=== PATIENT | male | born 1965 | race Caucasian/White ===

== ENCOUNTER 2016-09-28 06:51 | Day surgery (SDC) | payer BC ==
--- NOTE | ~2016-09-28 | EGD ---
EGD REPORT [facility] [address] [id number] NAME: NALDO GARCIA : 61 STATUS : REG [facility]#: [id number] AGE: 51 ADM/REG DATE : 09/28/16 MR#: [id number] REPORT SERV DATE: 09/28/16 DICTATED BY: RICKY BHAKTA DATE: 09/28/16 REPORT STATUS : Draft [facility]ANS[facility]ED [facility]: [facility] DATE: 09/28/16 Endoscopy Center Patient Name: Naldo Garcia Date of : 1965 Attending MD: RICKY BHAKTA, Procedure Date No Time: 09/28/2016 Procedure: Upper GI endoscopy Indications: For therapy of Hathaway's esophagus. Prior Hathaway's treated. Last endoscopy showed no visible Hathaway's but there was Hathaway's on biopsies. Referring MD: KATHY STEARNS JR., DCO RAMIREZ MD Complications: No immediate complications. Estimated blood loss: None. Procedure: Pre-Anesthesia Assessment: - ASA Grade Assessment: III - A patient with severe systemic disease. After obtaining informed consent, the endoscope was passed under direct vision. Throughout the procedure, the patient's blood pressure, pulse, and oxygen saturations were monitored continuously. The GIF [id number] was introduced through the mouth, and advanced to the second part of duodenum. Findings: The lower third of the esophagus was normal. Circumferential radiofrequency ablation of Hathaway's esophagus was performed, using the Halo 360 catheter and balloon-based endoscopic ablation system. With the endoscope in place, the position and extent of the Hathaway's mucosa and the anatomic landmarks were noted. An appropriately sized radiofrequency ablation balloon catheter was then selected and passed transorally over the guidewire into the esophagus. The endoscope was introduced in a [id number] manner with the ablation catheter. The balloon ablation catheter was positioned under direct visualization so that the proximal edge of the electrode was. The balloon was automatically inflated and energy was applied at 10 J/cm2. The balloon electrode was moved 3 cm distally, so that the proximal edge of the electrode was aligned with the distal edge of the ablation zone as the first pass appeared to have migrated proximally. The ablation catheter and guidewire were removed and the balloon was cleaned. The ablation zone was then cleaned of overlying coagulative debris using irrigation and suction via the endoscope and a cleaning cap. The guidewire was reinserted and then the ablation catheter was reintroduced into the esophagus over the wire. The ablation catheter was positioned under direct visualization so that the proximal edge of the electrode was at the proximal edge of the ablation zone. Reinflation and a second round of ablation was performed with the application of 10 J/cm2 to re-treat the Hathaway's epithelium already EGD REPORT [place] [id number] [facility] [place]. [address] NAME: NALDO GARCIA : 61 STATUS : REG [facility] [place] PAT#: [id number] AGE: 51 ADM/REG DATE : 09/28/16 MR#: [id number] REPORT SERV DATE: 09/28/16 DICTATED BY: RICKY BHAKTA DATE: 09/28/16 REPORT STATUS : Draft TRANSCRIBED BY: [employer] DATE: 09/28/16 treated with the first round of ablation. Only one treatment was done the second time. The ablation catheter and guidewire were then removed. The areas of the esophagus where Hathaway's mucosa had been ablated were then carefully examined with the endoscope. The stomach was normal. The cardia and gastric fundus were normal on retroflexion. The examined duodenum was normal. Impression: - Normal lower third of esophagus. Treated with radiofrequency ablation. - Normal stomach. - Normal examined duodenum. Recommendation: - Patient has a contact number available for emergencies. The signs and symptoms of potential delayed complications were discussed with the patient. Return to normal activities tomorrow. Written discharge instructions were provided to the patient. - Return to previous diet. - Continue present medications. - Repeat the upper endoscopy in 3 months for surveillance. Procedure Code(s): --- Professional --- 17651, Esophagogastroduodenoscopy, flexible, transoral; with ablation of tumor(s), polyp(s), or other lesion(s) (includes pre- and post-dilation and guide wire passage, when performed) Diagnosis Code(s): --- Professional --- K22.70, Hathaway's esophagus without dysplasia CPT copyright 2013 [employer]. All rights reserved. The codes documented in this report are preliminary and upon gas mask assembler review may be revised to meet current compliance requirements. RICKY BHAKTA, 09/28/2016 8:31 AM Number of Addenda: 0 Note Initiated On: 09/28/2016 8:06 AM Scope Withdrawal Time 0 hours 0 minutes 0 seconds [address] [place] [address]
[~2016-09-28 06:51] MED LIST: ATV.5 PO; AUGMENTIN PO; FLORASTOR250 MG PO; FOLIC ACID400 MC1 PO; GGDM5ML PO; LEVAQUIN750 MG PO; LOP25 PO; LOP50 PO; MICROZIDE PO; MOTRIN IB200 MG PO; PRILOSEC40 MG PO; PROAIR HFA INH; VENTOLIN HFA INH
== END 2016-09-28 23:59 | disposition home health service (06) ==
LOC: DMU 06:51
PROVIDERS: Internal Medicine Gastroenterology
PROC: 0D538ZZ Destruction of Lower Esophagus, Via Natural or Artificial Opening Endoscopic (ICD-10-PCS; principal; 2016-09-28 08:30)
DX: K22.70 Barrett's esophagus without dysplasia (principal); I10 Essential (primary) hypertension; Z88.8 Allergy status to other drugs, medicaments and biological substances; Z98.890 Other specified postprocedural states
CPT/HCPCS: C1725